=== PATIENT | female | born 1980 | race Caucasian/White ===

== ENCOUNTER 2024-06-14 12:19 | Emergency (ER) | payer SELFPAY ==
[2024-06-14 12:35] LABS: BASOPHILS ABSOLUTE AUTO 0.05 K/uL (0.00-0.20); BASOPHILS PERCENT AUTO 0.7 % (0.0-1.0); EOSINOPHILS ABSOLUTE AUTO 0.06 K/uL (0.00-0.45); EOSINOPHILS PERCENT AUTO 0.9 % (0.0-6.0); HEMATOCRIT 41.3 % (37.0-47.0); HEMOGLOBIN 13.4 g/dL (12.0-16.0); IMMATURE GRAN ABSOLUTE AUTO 0.04 K/uL (0.00-0.05); IMMATURE GRAN PERCENT AUTO 0.6 % (0.0-0.4); LYMPHOCYTES ABSOLUTE AUTO 1.95 K/uL (1.00-4.80); LYMPHOCYTES PERCENT AUTO 28.6 % (24.0-44.0); MEAN CORPUSCULAR HEMOGLOBIN 30.5 pg (28.0-32.0); MEAN CORPUSCULAR HGB CONC 32.4 g/dL (32.0-36.0); MEAN CORPUSCULAR VOLUME 94.1 fL (83.0-99.0); MEAN PLATELET VOLUME 10.5 fL (9.4-12.3); MONOCYTES PERCENT AUTO 7.3 % (0.0-8.0); NEUTROPHILS ABSOLUTE AUTO 4.23 K/uL (1.80-7.70); NEUTROPHILS PERCENT AUTO 61.9 % (41.0-71.0); PLATELET COUNT,PLT 158 K/uL (150-400); RED BLOOD CELL COUNT 4.39 M/uL (4.10-5.30); WHITE BLOOD CELL COUNT,WBC 6.83 K/uL (3.9-11.3)
[2024-06-14] MEDS: Sodium Chloride 0.9% 1,000 ML IV ONE ×2 (12:54→13:43)
[2024-06-14] MEDS: Ondansetron 4 MG/2 ML SDV IVPUSH ONE (12:55)
[2024-06-14 12:56] VITALS: BP 114/75; PULSE 97
[2024-06-14 13:04] LABS: A/G RATIO 0.8 (0.9-1.6); ALANINE AMINOTRANSFERASE,ALT 107 IU/L (14-63); ALBUMIN 3.8 g/dL (3.4-5.0); ALKALINE PHOSPHATASE 90 U/L (46-116); ASPARTATE AMNIOTRANSFERASE,AST 105 IU/L (15-37); BILIRUBIN TOTAL 0.8 mg/dL (0.2-1.0); BLOOD UREA NITROGEN,BUN 8 mg/dL (7.0-18.0); CALCIUM 8.5 mg/dL (8.5-10.1); CARBON DIOXIDE,CO2 14.4 mmol/L (21.0-32.0); CHLORIDE,CL 94 mmol/L (98-107); CREATINE KINASE,CK 94 U/L (26-308); EST CRCL DRUG DOSING (CG) 60.62 mL/min; ESTIMATED GFR 72 mL/min (>60); ETHANOL BLOOD MEDICAL < 3.0 mg/dL; GLUCOSE RANDOM 110 mg/dL (74-106); POTASSIUM,K 3.7 mmol/L (3.5-5.1); PROTEIN TOTAL,TP 8.3 g/dL (6.4-8.2); SODIUM,NA 133 mmol/L (136-145)
[2024-06-14 13:48] LABS: APPEARANCE,URINE SLT CLOUDY; BILIRUBIN,URINE NEGATIVE (NEGATIVE); COLOR,URINE YELLOW; GLUCOSE,URINE NEGATIVE (NEGATIVE); KETONES,URINE >=80 mg/dL (NEGATIVE); LEUKOCYTE ESTERASE,URINE NEGATIVE (NEGATIVE); NITRITE,URINE POSITIVE (NEGATIVE); OCCULT BLOOD,URINE MODERATE (NEGATIVE); PROTEIN,URINE 30 mg/dL (NEGATIVE); UROBILINOGEN,URINE 0.2 EU/dL (<2.0)
[2024-06-14 13:57] LABS: AMORPHOUS SEDIMENT,URINE FEW (NEGATIVE); AMPHETAMINES SCREEN, URINE NEGATIVE (CUTOFF=500); BACTERIA,URINE 1+ (NEGATIVE); BARBITURATE SCREEN,URINE NEGATIVE (CUTOFF=200); BENZODIAZEPINES SCREEN,URINE NEGATIVE (CUTOFF=150); BUPRENORPHINE SCREEN,URINE NEGATIVE (CUTOFF=10); EPITHELIAL CELLS,URINE FEW (NONE-FEW); METHADONE SCREEN, URINE NEGATIVE (CUTOFF=200); METHAMPHETAMINES SCREEN, URINE NEGATIVE (CUTOFF=500); OXYCODONE SCREEN,URINE NEGATIVE (CUT0FF=100); PCP SCREEN,URINE NEGATIVE (CUTOFF=25); RBC,URINE 0-1 (0-2/HPF); THC SCREEN,URINE 20 NG/ML NEGATIVE (CUTOFF=50)
[2024-06-14] MEDS: cefTRIAXone 1 GM Vial ONE (14:52)
[2024-06-14] MEDS: Ketorolac 30 MG/ML SDV IVPUSH ONE (15:20)
[2024-06-14] MEDS: cefTRIAXone 1 GM in Sodium Chloride 0.9% 50 ML IV ONE (15:21)
== END 2024-06-14 16:25 | disposition home or self-care (01) ==
LOC: EDBD → MW.ED 12:19 → MERGE 12:19 → MW.ED 16:24
DX: R56.9 Unspecified convulsions (principal); N39.0 Urinary tract infection, site not specified; Z75.8 Other problems related to medical facilities and other health care
CPT/HCPCS: 36415; 70450; 80053; 80305; 80307; 81001; 81025; 82550; 82947; 83605; 85025; 87086; 87088; 87186; 93005; 96361; 96365; 96375; 99285; J0696; J1885; J2405; J3490; J7030; 93010; 99284

== ENCOUNTER 2024-06-29 10:32 | Emergency (ER) | payer SELFPAY ==
[2024-06-29 11:13] VITALS: BP 108/86; PULSE 99
== END 2024-06-29 11:11 | disposition home or self-care (01) ==
LOC: MW.ED 10:32
DX: Z02.89 Encounter for other administrative examinations (principal); G40.909 Epilepsy, unspecified, not intractable, without status epilepticus; Z75.8 Other problems related to medical facilities and other health care
CPT/HCPCS: 99283